=== PATIENT | male | born 1970 | race Caucasian/White ===

== ENCOUNTER 2020-06-21 02:15 | Emergency (ER) | payer OTHER ==
[~2020-06-21] VITALS: Ht 180.3 cm; Wt 83.9 kg
[2020-06-21 02:15] VITALS: BP 142/96
--- NOTE | 2020-06-21 02:15 | NUR ---
TO BED 4 VIA [facility] WITH C/O SOB. PT IS VERY ANXIOUS. RESPIRATIONS ARE REGULAR AND UNLABORED. HX OF CHRONIC BRONCHITIS. PT AMBULATED FROM [facility] TO [facility], NO SOB ON EXERTION. ATTACHED TO CM = ST WITHOUT ECTOPY. O2 SAT = 99% ON R/A. DENIES PAIN
--- NOTE | 2020-06-21 02:32 | NUR ---
BIBA TO ER BED 4
[2020-06-21] MEDS ORDERED: NACL 0.9% 1,000 ML IV ONE (02:50)
--- NOTE | 2020-06-21 04:00 | NUR ---
DR. MARQUEZ AT BEDSIDE FOR RE-EXAM , EVAL AND DISPOSITION.
[2020-06-21 04:25] VITALS: BP 135/89
--- NOTE | 2020-06-21 04:25 | NUR ---
Patient discharged with v/s stable. Written and verbal after care instructions given and explained. Patient verbalized understanding. Ambulatory with steady gait. All questions addressed prior to discharge. Advised to follow up with PMD.
== END 2020-06-21 04:25 | disposition home or self-care (01) ==
LOC: MED 02:15
DX: E86.0 Dehydration (principal); F41.9 Anxiety disorder, unspecified; F17.210 Nicotine dependence, cigarettes, uncomplicated; J44.9 Chronic obstructive pulmonary disease, unspecified
CPT/HCPCS: 71045; 96360; 99283; J7030

== ENCOUNTER 2020-06-26 03:53 | Emergency (ER) | payer OTHER ==
[~2020-06-26] VITALS: Ht 180.3 cm; Wt 83.9 kg
[2020-06-26 04:01] VITALS: BP 126/78
[2020-06-26] MEDS ORDERED: ALBUTEROL SULFATE/IPRATROPIU 3 ML SOL IH ONE ×2 (04:10→04:12)
[2020-06-26] MEDS ORDERED: methylPREDNISolone SS 125 MG in WATER STERILE 2 ML IV ONE (04:10)
[2020-06-26] MEDS ORDERED: WATER STERILE 10 ML MC ONE (04:39)
[2020-06-26] MEDS ORDERED: methylPREDNISolone SS 125 MG/2 ML VIAL ONE (04:40)
== END 2020-06-26 05:56 | disposition home or self-care (01) ==
LOC: MED 03:53
DX: J44.1 Chronic obstructive pulmonary disease with (acute) exacerbation (principal); F17.210 Nicotine dependence, cigarettes, uncomplicated; Z71.6 Tobacco abuse counseling
CPT/HCPCS: 71045; 94640; 96374; 99283; J2930